=== PATIENT | male | born 1990 | race Caucasian/White ===

== ENCOUNTER 2017-08-08 20:50 | Emergency (ER) | payer OTHER ==
[~2017-08-08] VITALS: Ht 175.3 cm; Wt 72.7 kg
[2017-08-08] MEDS ORDERED: SILVADENE11 TP (21:45)
[2017-08-08 21:50] VITALS: BP 120/65
== END 2017-08-08 21:50 | disposition home or self-care (01) ==
LOC: ED 20:50
DX: L55.1 Sunburn of second degree (principal)